=== PATIENT | female | born 1970 | race Caucasian/White ===

== ENCOUNTER → 2023-04-25 | Outpatient (CLI) | payer BC ==
[2023-04-25 21:16] LABS: HCT 44.9 % (37.2-46.3); HGB 14.5 d/dL (12.0-15.0); MCH 28.6 pg (27.0-32.0); MCHC 32.3 d/dL (32.0-37.0); MCV 88.6 FL (80.0-97.0); NRBC Per 100 WBC 0 X 10*3/uL (0.00-0.01); Platelet Count 244 X 10*3/uL (140-440); RBC 5.07 X 10*6/uL (4.10-5.20); RDW 12.8 % (11.5-14.5); WBC 5.78 X 10*3/uL (4.50-10.00)
[2023-04-25 23:50] LABS: Blood Urea Nitrogen 19.2 mg/dL (9.0-27.0); Calcium 9.7 mg/dL (8.7-10.3); Carbon Dioxide 21.9 mmol/L (21.6-31.8); Chloride 104 mmol/L (96-109); Glucose 98 mg/dL (70-110); Potassium 4.2 mmol/L (3.5-5.5); Sodium 141 mmol/L (135-145)
== END | disposition home or self-care (01) ==
LOC: LABWHC1 14:05
PROVIDERS: ATTEND Podiatrist Foot & Ankle Surgery
DX: Z01.812 Encounter for preprocedural laboratory examination (principal)
CPT/HCPCS: 36415; 80048; 85027

== ENCOUNTER 2023-05-01 11:40 | Day surgery (SDC) | payer BC ==
[2023-04-29 14:52] VITALS: BMI 29.5
[~2023-05-01 11:40] MED LIST: DEXAMETHASONE SOD PHOSPHATE 4 MG/ML 1 ML VIAL IV ONE; HYDROmorphone 0.5 MG/0.5 ML SYRINGE IVP PRN; LACTATED RINGERS 1,000 ML IV SCH; LIDOCAINE 1% (10MG/ML) FOR IV START INTRADERMA PRN; ONDANSETRON 4 MG/2 ML VIAL IVP ONE; Pre Op ABX Message 1 EACH MISC MISCELLANE ONE; droPERidol 5 MG/2 ML VIAL IVP ONE
[2023-05-01 12:17] VITALS: TEMP 97.7
[2023-05-01] MEDS ORDERED: MIDAZOLAM 2 MG/2 ML VIAL IVP ONE (12:30)
[2023-05-01] MEDS ORDERED: MIDAZOLAM 2 MG/2 ML VIAL ONE (12:39)
[2023-05-01] MEDS ORDERED: KETAMINE 10 MG/ML 20 ML VIAL ONE (12:39)
[2023-05-01] MEDS ORDERED: fentaNYL (PF) 50 MCG/ML 2 ML AMP ONE (12:39)
[2023-05-01] MEDS ORDERED: PROPOFOL 10 MG/ML 20 ML VIAL IV ONE (12:39)
[2023-05-01] MEDS ORDERED: BUPIVACAINE (PF) 0.25% 10 ML VIAL SQ ONE (12:41)
--- NOTE | 2023-05-01 14:08 | P.OP ---
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 Bursal sac second intermetatarsal space right foot Postoperative Diagnosis: Same Procedure(s) Performed: Excision of Welch's neuroma third intermetatarsal space right foot and bursal sac second intermetatarsal space right foot Anesthesia: [facility] Surgeon: Grupo Ferreira Indications for Procedure: Pain second and third intermetatarsal space areas right foot Description of Procedure: On the date of surgery the patient was taken to the operating room in good condition placed on the operating table in a supine position where an IV was started and adequate IV anesthetic agents were utilized anesthesia was then further supplemented with 18 mL of 0.25% plain Marcaine given in an infiltrative block to the second and third intermetatarsal spaces of the patient's right foot. Since right foot and ankle were then prepped and draped in the usual aseptic manner Asians right foot and ankle were then elevated and exsanguinated of blood utilizing an Esmarch bandage and after approximately 2 minutes. A time the ankle tourniquet to the patient's right ankle was inflated to 250 mmHg At this time attention was directed to the dorsal aspect of the root intermetatarsal space of the patient's right foot where an approximately 3 cm linear incision was made the incision was deepened via sharp dissection down through the level of the subcutaneous tissue layers all neurovascular structures encountered were identified isolated and were retracted and any bleeding vessels were clamped electrocauterized. Throughout the surgical procedure copious amounts of sterile saline solution was used to irrigate the surgical site. Dissection was carried deep via sharp and blunt technique down to level of the transverse intermetatarsal ligament which was identified and incised in line with the original skin incision and dissection was then carried deep until a neuroma-appearing structure was seen it was dissected proximally distally medially and laterally was clamped and excised in total from the surgical site. The surgical site was then inspected for any remaining portions and when none was seen subcutaneous tissues were coaptated and maintained utilizing 3-0 Vicryl simple interrupted suture and the skin was closed utilizing 4-0 nylon simple interrupted suture At this time attention was directed to the second intermetatarsal space where an approximately 3 cm dorsal linear incision was made the incision was deepened via sharp dissection down through the level of the subcutaneous tissue layers all neurovascular structures encountered were identified isolated and were retracted and any bleeding vessels were clamped electrocauterized. Throughout the surgical procedure copious amounts sterile saline solution was used to irrigate the surgical site dissection was then carried deep via sharp and blunt technique down to level of the transverse intermetatarsal ligament which was identified and incised in line with the original skin incision and dissection was then carried deep to this and a bursal sac was identified was clamped and excised in total from the surgical site upon completion of this the site was inspected for any remaining portions and when none was seen subcutaneous tissues were coaptated and maintained utilizing 3-0 Vicryl simple interrupted suture the skin was then closed utilizing 4-0 nylon simple interrupted suture the incisions were then covered with Adaptic Kerlix fluffs four-inch conformer and 4 inch Coban the ankle tourniquet to the patient's right ankle was deflated and adequate hemostatic return was seen in all digits of the patient's right foot specifically the second third and fourth digits. The patient tolerated the surgery and anesthesia well was taken to the recovery room in good postoperative condition
[2023-05-01 14:28] VITALS: BP 126/88; PULSE 76; RESP 18
== END 2023-05-01 14:40 | disposition home or self-care (01) ==
LOC: OR 11:40
PROVIDERS: ATTEND Podiatrist Foot & Ankle Surgery
DX: G57.61 Lesion of plantar nerve, right lower limb (principal); M71.071 Abscess of bursa, right ankle and foot; I10 Essential (primary) hypertension; K58.9 Irritable bowel syndrome, unspecified; Z79.899 Other long term (current) drug therapy
CPT/HCPCS: 88304; 28080 ×2; J2250; J1100; J2405; J3010; J2704; J0665